=== PATIENT | male | born 1990 | race Caucasian/White ===

== ENCOUNTER 2017-09-08 17:14 | Emergency (ER) | payer OTHER ==
[2017-09-08 18:00] VITALS: BP 133/99; PULSE 98; RESP 20; TEMP 99.2
[2017-09-08] MEDS ORDERED: BUPIVACAINE (PF) 0.25% 30 ML VIAL MISCELLANE STA (18:15)
--- NOTE | 2017-09-08 18:20 | ED ---
ENT HPI - General Chief complaint: Dental/Oral Stated complaint: dental pain, jaw pain Time Seen by Provider: 09/08/17 18:07 Source: patient, RN notes reviewed Mode of arrival: ambulatory Limitations: no limitations - History of Present Illness Initial comments: This is a 26-year-old male who presents to the emergency department with chief complaint of dental pain. Patient states that for the past week he has had excruciating pain in his left lower molars. Patient states that he had an abscess couple months ago and was unable to follow-up with the dentist, however he ended up in long term. Patient has been unable to follow up with a dentist. He states that he believes he might have another abscess in the same location. Denies fever, chills, chest pain, shortness of breath, abdominal pain, nausea or vomiting, constipation or diarrhea, dysuria or hematuria, numbness or tingling, headache or vision changes. - Related Data Previous Rx's Medication Instructions Recorded Clindamycin [Cleocin] 450 mg PO TID #90 cap 09/08/17 HYDROcodone/APAP 5-325MG [[place] 5] 1 each PO Q6HR PRN #12 tab 09/08/17 Allergies Allergy/AdvReac Type Severity Reaction Status Date / Time Penicillins Allergy Rash/Hives Verified 09/08/17 18:00 Review of Systems ROS Statement: Those systems with pertinent positive or pertinent negative responses have been documented in the HPI. ROS Other: All systems not noted in ROS Statement are negative. Past Medical History Past Medical History: No Reported History History of Any Multi-Drug Resistant Organisms: MRSA Date of last positivie culture/infection: 2015 Past Surgical History: No Surgical Hx Reported Past Psychological History: No Psychological Hx Reported Smoking Status: Current every day smoker Past Alcohol Use History: None Reported Past Drug Use History: Marijuana General Exam - General Exam Comments Initial Comments: General: Awake and alert, well-developed; in no apparent distress. HEENT: Head atraumatic, normocephalic. Pupils are equal, round and reactive to light. Extraocular movements intact. Oropharynx moist without erythema or exudate. Very poor dentition with multiple missing teeth and dental caries. Teeth #18 and 19 are missing crowns. Area of fluctuance noted at outer gumline of tooth #19. Neck: Supple. Normal ROM. Cardiovascular: Regular rate and rhythm. No murmurs, rubs or gallops. Chest symmetrical. Respiratory: Lungs clear to auscultation bilaterally. No wheezes, rales or rhonchi. Normal respiratory effort with no use of accessory muscles. Musculoskeletal: Normal ROM, no tenderness bilateral upper and lower extremities. Ambulating normally. Skin: [place], warm and dry without rashes or lesions. Neurological: Alert and oriented x3. CN II-XII grossly intact. Speech is fluent and answers are appropriate. No focal neuro deficits. Psychiatric: Normal mood and affect. No overt signs of depression or anxiety noted. Limitations: no limitations Course Vital Signs 09/08/17 17:58 Temperature 99.2 F Pulse Rate 98 Respiratory 20 Rate Blood Pressure 133/99 O2 Sat by Pulse 100 Oximetry Procedures - Incision & Drainage Consent Obtained: verbal consent Indication: abscess Site: oral Size (cm): 1 Needle Aspiration Performed?: Yes I&D Drainage Obtained: Blood Complications: pain Patient Tolerated Procedure: well - Nerve Block Consent Obtained: verbal consent Local Anesthetic Used: Marcaine 0.5% Amount of anesthesia used: 3 Side: left Intraoral Nerve Block: inferior alveolar Procedure Successful: Yes (not successful to area of fluctance) Complications: pain with procedure, inadequate anesthesia Patient Tolerated Procedure: well Medical Decision Making - Medical Decision Making This is a 26-year-old male who presents to the emergency department with chief complaint of dental pain. The patient has very poor dentition with multiple caries and missing teeth. There is a small area of fluctuance at the gumline of tooth #18. Inferior alveolar dental block was attempted using 0.5% bupivacaine. Patient stated he felt numbness of the left sided inner gumline as well as the left lower lip but the area of fluctuance was nozzle tender. Incision and drainage was performed resulting in drainage of bloody contents. No purulence was noted. Patient will be discharged home with prescription for pain medication and antibiotics. He was strongly advised to follow up with a dentist tomorrow morning. Contact information will be provided. Patient will be discharged home. He is in agreement with plan and voices understanding. All questions were answered. Disposition Clinical Impression: Pain, dental Disposition: HOME SELF-CARE Condition: Good Instructions: Toothache (ED), Dental Abscess (ED) Additional Instructions: Please follow up with the [facility]. [facility] [place] [address]. Phone number for new patients or for existing patients. Please take medications as prescribed. Please follow up with primary care provider within 1-2 days. Return to emergency department if symptoms should worsen or any concerns arise. Prescriptions: Clindamycin [Cleocin] 450 mg PO TID #90 cap HYDROcodone/APAP 5-325MG [[place] 5] 1 each PO Q6HR PRN #12 tab PRN Reason: Pain Referrals: None,Stated [Primary Care Provider] - 1-2 days Time of Disposition: 19:02
[2017-09-08] MEDS ORDERED: BUPIVACAINE (PF) 0.5% 30 ML VIAL MISCELLANE STA (18:21)
== END 2017-09-08 19:06 | disposition home or self-care (01) ==
LOC: EC 17:14
DX: K02.9 Dental caries, unspecified (principal); K08.409 Partial loss of teeth, unspecified cause, unspecified class; F17.200 Nicotine dependence, unspecified, uncomplicated; Z88.0 Allergy status to penicillin; Z86.14 Personal history of Methicillin resistant Staphylococcus aureus infection
CPT/HCPCS: 41800; 99283

== ENCOUNTER 2022-01-12 15:25 | Emergency (ER) | payer OTHER ==
[2022-01-12 15:30] VITALS: TEMP 98.1
[2022-01-12] MEDS ORDERED: KETOROLAC 15 MG/ML 1 ML VIAL IM STA (16:22)
--- NOTE | 2022-01-12 16:35 | ED ---
Lower Extremity Injury HPI - General Chief Complaint: Extremity Injury, Lower Stated Complaint: Left Knee Injury and Swelling Time Seen by Provider: 01/12/22 16:13 Source: patient, RN notes reviewed Mode of arrival: ambulatory Limitations: no limitations - History of Present Illness Initial Comments: This is a 31-year-old male who presents to the emergency department for left knee pain and swelling. Patient states that a few weeks ago, he believes that he may have injured it, he suspects that he twisted it, but cannot recall a specific event. He was evaluated at [facility] following the injury. No x-rays were obtained, and he states that given the fluid in his knee, he was treated with antibiotics. Pain was treated with Toradol and ibuprofen. Patient states that his symptoms continue to progress. He has difficulty with ambulation and states that the pain has been progressive. He notes that his knee continues to click and make noises when he walks. He also feels like he is hyperextending his knee and there is a degree of instability. He does keep a knee brace on while at work, which he states is somewhat helpful. MD Complaint: knee injury Onset/Timin -: week(s) - Related Data Home Medications Medication Instructions Recorded Confirmed Acetaminophen [Tylenol] 1,000 mg PO Q8H PRN 01/12/22 01/12/22 Ibuprofen [Motrin Ib] 800 mg PO Q8H PRN 01/12/22 01/12/22 Previous Rx's Medication Instructions Recorded Diclofenac Sodium [Voltaren] 75 mg PO BID PRN #25 tab 01/12/22 HYDROcodone/APAP 5-325MG [[place] 1 tab PO Q6HR PRN 3 Days #12 tab 01/12/22 5-325] Allergies Allergy/AdvReac Type Severity Reaction Status Date / Time Penicillins Allergy Rash/Hives Verified 01/12/22 17:40 Review of Systems ROS Statement: Those systems with pertinent positive or pertinent negative responses have been documented in the HPI. ROS Other: All systems not noted in ROS Statement are negative. Constitutional: Denies: fever, chills ENT: Denies: ear pain, throat pain Respiratory: Denies: cough, dyspnea Cardiovascular: Denies: chest pain, palpitations Gastrointestinal: Denies: abdominal pain, nausea, vomiting, diarrhea Musculoskeletal: Reports: other (left knee pain) Skin: Denies: rash Neurological: Denies: headache Past Medical History Past Medical History: No Reported History History of Any Multi-Drug Resistant Organisms: MRSA Date of last positivie culture/infection: 2015 Past Surgical History: No Surgical Hx Reported Past Psychological History: No Psychological Hx Reported Smoking Status: Current every day smoker Past Alcohol Use History: None Reported Past Drug Use History: Marijuana General Exam Limitations: no limitations General appearance: alert, in no apparent distress Head exam: Present: atraumatic, normocephalic, normal inspection Respiratory exam: Present: normal lung sounds bilaterally. Absent: respiratory distress, wheezes, rales, rhonchi, stridor Cardiovascular Exam: Present: regular rate, normal rhythm, normal heart sounds. Absent: systolic murmur, diastolic murmur, rubs, gallop, clicks Left Knee exam: Present: swelling, ecchymosis, effusion, pain w/ pronation/supination, pain/laxity with valgus, pain/laxity with varus. Absent: full ROM, tenderness, abrasion, laceration, deformity, crepitus, dislocation, erythema Neurovascular tendon exam: Present: no vascular compromise. Absent: pulse deficit, abnormal cap refill Neurological exam: Present: alert, oriented X3, CN II-XII intact Psychiatric exam: Present: normal affect, normal mood Skin exam: Present: warm, dry, intact, normal color. Absent: rash Course Vital Signs 01/12/22 01/12/22 15:27 17:47 Temperature 98.1 F Pulse Rate 64 65 Respiratory 16 18 Rate Blood Pressure 143/92 135/92 O2 Sat by Pulse 97 97 Oximetry Medical Decision Making - Medical Decision Making This is a 31-year-old male who presents to the emergency department for left knee pain. X-ray obtained did not reveal any abnormalities. Upon examination, there is very obvious swelling and a palpable effusion. Patient does have a lot of pain with passive and active range of motion. Advised that this may be a deeper injury that we cannot evaluate on x-ray. Information for orthopedics listed on his discharge forms, he is advised to contact them for an appointment. He is otherwise advised to apply heat, continue using his knee brace, and elevate the leg. Rx for Bristol sent to the pharmacy to help the patient sleep with the pain. He is advised to only use this at night and avoid driving or operating machinery with this. Rx for diclofenac sent to his pharmacy as well, he is advised to avoid taking ibuprofen or other anti-inflammatories with this. He can alternate with Tylenol. Return precautions reviewed in depth, the patient is instructed to return to the emergency department with any new, worsening, or concerning symptoms. Patient verbalized understanding. This case was discussed in detail with the attending ED physician. Presentation, findings, and treatment plan discussed in detail as well. - Radiology Data Radiology results: report reviewed, image reviewed Disposition Clinical Impression: Strain of knee and leg, left Disposition: HOME SELF-CARE Instructions (If sedation given, give patient instructions): Knee Sprain (ED), Knee Pain (ED) Additional Instructions: Return to the emergency department with any new, worsening, or concerning symptoms. Do not take any other anti-inflammatories with the diclofenac. Only take the Bristol at night and avoid driving or operating machinery with this. Contact orthopedics and make an appointment for further evaluation. Apply hot compresses, elevate the leg, and continue to use the knee brace Prescriptions: HYDROcodone/APAP 5-325MG [B[place] 5-325] 1 tab PO Q6HR PRN 3 Days #12 tab PRN Reason: Pain Diclofenac Sodium [Voltaren] 75 mg PO BID PRN #25 tab PRN Reason: Pain Is patient prescribed a controlled substance at d/c from ED?: Yes If prescribed controlled substance>3 days was MAPS reviewed?: Prescribed <3 Days Referrals: None,Stated [Primary Care Provider] - 1-2 days Garry Moore DO [Doctor of Osteopathic Medicine] - 1-2 days
--- NOTE | 2022-01-12 17:14 | XR ---
EXAMINATION TYPE: XR knee complete LT DATE OF EXAM: 01/12/2022 4:43 PM INDICATION: Patient age:Male; 31 years old; Reason for study: pain; COMPARISON: None. TECHNIQUE: The Left knee(s) was examined in 3 projections. FINDINGS: No evidence of any acute osseous pathology, joint space narrowing, soft tissue swelling, or joint effusion is noted. IMPRESSION: 1. No acute osseous pathology.
[2022-01-12 17:50] VITALS: BP 135/92; PULSE 65; RESP 18
== END 2022-01-12 17:47 | disposition home or self-care (01) ==
LOC: EC 15:25
DX: S83.92XA Sprain of unspecified site of left knee, initial encounter (principal); F17.200 Nicotine dependence, unspecified, uncomplicated; Z88.0 Allergy status to penicillin; W19.XXXA Unspecified fall, initial encounter
CPT/HCPCS: 73562; 99283; 96372; J1885